=== PATIENT | male | born 1990 | race Caucasian/White ===

== ENCOUNTER → 2016-10-27 19:40 | Outpatient (CLI) | payer MEDICARE | END | disposition home or self-care (01) | LOC: D.SLEEP 19:40 | DX: G47.33 Obstructive sleep apnea (adult) (pediatric) (principal) ==

== ENCOUNTER → 2016-10-29 19:39 | Outpatient (CLI) | payer MEDICARE | END | disposition home or self-care (01) | LOC: D.SLEEP 19:39 | DX: G47.33 Obstructive sleep apnea (adult) (pediatric) (principal) ==